=== PATIENT | male | born 1995 | race African-American/Black ===

== ENCOUNTER 2019-06-02 20:50 | Emergency (ER) | payer OTHER, SELFPAY ==
[2019-06-02 20:52] VITALS: BP 120/84; PULSE 84; RESP 17; TEMP 37; O2SAT 95; BMI 21.9
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
== END 2019-06-02 22:32 ==
PROVIDERS: Emergency Provider Emergency Medicine
DX: S60.212A Contusion of left wrist, initial encounter (principal); S00.511A Abrasion of lip, initial encounter; V48.5XXA Car driver injured in noncollision transport accident in traffic accident, initial encounter; Y93.9 Activity, unspecified; Y92.410 Unspecified street and highway as the place of occurrence of the external cause; Y99.9 Unspecified external cause status; F17.200 Nicotine dependence, unspecified, uncomplicated
CPT/HCPCS: 73110; 99284